=== PATIENT | male | born 2000 | race Asian ===

== ENCOUNTER 2020-07-13 09:18 | Emergency (ER) | payer MEDICAID ==
[~2020-07-13] VITALS: Ht 165.1 cm; Wt 56.8 kg
[2020-07-13 11:22] VITALS: BP 123/68
== END 2020-07-13 11:51 | disposition home or self-care (01) ==
LOC: EMS 09:23
DX: F41.9 Anxiety disorder, unspecified (principal); F12.90 Cannabis use, unspecified, uncomplicated; R20.0 Anesthesia of skin; F17.200 Nicotine dependence, unspecified, uncomplicated
CPT/HCPCS: 99281; Z7502